=== PATIENT | female | born 1960 | race Asian ===

== ENCOUNTER 2019-03-28 08:56 | Emergency (ER) | payer OTHER ==
[~2019-03-28] VITALS: Ht 149.9 cm; Wt 51.7 kg
[2019-03-28 09:00] VITALS: Ht 149.9 cm; Wt 51.7 kg
[2019-03-28 11:46] VITALS: BP 126/79
== END 2019-03-28 11:46 | disposition home or self-care (01) ==
LOC: ED 08:56
DX: G40.409 Other generalized epilepsy and epileptic syndromes, not intractable, without status epilepticus (principal); G43.909 Migraine, unspecified, not intractable, without status migrainosus; F31.9 Bipolar disorder, unspecified; I10 Essential (primary) hypertension; Z88.8 Allergy status to other drugs, medicaments and biological substances
CPT/HCPCS: 82962

== ENCOUNTER 2019-03-29 06:58 | Emergency (ER) | payer OTHER ==
[~2019-03-29] VITALS: Ht 152.4 cm; Wt 49.9 kg
[2019-03-29 07:07] VITALS: Ht 152.4 cm; Wt 49.9 kg
[2019-03-29 08:29] LABS: CARBON DIOXIDE 22.8 mmol/L (21-32); CHLORIDE SERUM 110 mmol/L (98-107); GFR1 > 60 mL/min; GLUCOSE SERUM 97 mg/dL (74-106); POTASSIUM SERUM 4.2 mmol/L (3.5-5.1); SODIUM SERUM 144 mmol/L (136-145)
[2019-03-29 09:50] VITALS: BP 125/64
== END 2019-03-29 09:50 | disposition home or self-care (01) ==
LOC: ED 06:58
PROVIDERS: Emergency Medicine
DX: G40.89 Other seizures (principal); I10 Essential (primary) hypertension; F32.9 Major depressive disorder, single episode, unspecified; Z88.6 Allergy status to analgesic agent; Z88.8 Allergy status to other drugs, medicaments and biological substances
CPT/HCPCS: J1885; J2060

== ENCOUNTER 2019-03-31 09:23 | Inpatient (IN) | payer OTHER ==
[~2019-03-31] VITALS: Ht 152.4 cm; Wt 52.8 kg
[2019-03-31 09:28] VITALS: Ht 152.4 cm; Wt 52.8 kg
--- NOTE | 2019-03-31 09:38 | NUR ---
PT BIBA FROM [facility], FOUND ON FLOOR, POST ICTAL, THIRD TIME THIS WEEK, WAS HERE SEVERAL DAYS AGO FOR SAME, PURPLE COLORED BRUISING/HEMATOMA NOTED TO FOREHEAD. PT AWAKE, FOLLOWS SIMPLE COMMANDS, BUT NON VERBAL AT THIS TIME. RESP EVEN AND UNLABORED, ON RA@99%. LEFT HAND IV G#20, TECHNOLOGY STRATEGIST LINE-PATENT. PER REPORT, PATIENT TAKING MEDS PRESCRIBED, INCLUDING KEPPRA. SEIZURE PRECAUTIONS IN PLACE, WILL CONT TO MONITOR CLOSELY. PT PLACED ON MONITOR AT 111, ST. ABD SOFT, ROUND, NT TO PALPATION, NO OBVIOUS INJURIES NOTED, ORAL MUCOSA/TONGUE INTACT. PERRL. NO INCONTINCE NOTED. SAFETY PRECAUTIONS IN PLACE, WILL CONT TO MONITOR.
[2019-03-31 09:54] LABS: CALCIUM 9.2 mg/dL (8.5-10.1); CARBON DIOXIDE 22.6 mmol/L (21-32); CREATININE SERUM 1.1 mg/dL (0.6-1.0); POTASSIUM SERUM 3.9 mmol/L (3.5-5.1)
--- NOTE | 2019-03-31 09:54 | NUR ---
PT BACK FROM CT SCAN
[2019-03-31 09:59] LABS: BILIRUBIN TOTAL 0.22 mg/dL (0.20-1.00); TOTAL PROTEIN, SERUM 7.7 g/dL (6.4-8.2)
--- NOTE | 2019-03-31 10:22 | NUR ---
PT HAD A TONIC CLONIC TYPE SEIZURE ACTIVITY, LASTING APPROX [address] VILLEGAS INFORMED AND MEDICATED ORDERED.PT HAS SEIZURE PADS AND WAS PLACED ON SIDE WHEN SEIZURE WAS OCCURING, OXYGEN PLACED. PER DR VILLEGAS, PT WILLBE ADMITTED TO FLOOR FOR OBSERVATION.
--- NOTE | 2019-03-31 10:51 | NUR ---
REPORT GIVEN TO RN, UPDATED ON STATUS, LSBS AND VITALS. PT STABLE FOR TRANSFER, VSS. CLOTHING BELONGINGS WITH PT. PT CONTINUES TO BE NON VERBAL , BUT NODS HEAD YES AND NO AND FOLLOWS ALL COMMANDS.
[2019-03-31 10:52] LABS: BASOPHIL % 0.3 % (0-2); PLATELET COUNT 248 x10^3mcL (130-400); RED CELL DISTRIBUTION WIDTH 13.8 % (11.5-14.5)
[2019-03-31] MEDS ORDERED: MAC100 PO (11:19)
[2019-03-31] MEDS ORDERED: LATUDA40 M1 PO (11:19)
[2019-03-31] MEDS ORDERED: LEXAPRO10 MG PO (11:20)
[2019-03-31] MEDS ORDERED: ATIVAN1 MG PO (11:21)
[2019-03-31] MEDS ORDERED: AMBIEN10 MG PO (11:21)
[2019-03-31] MEDS ORDERED: KEPPRA500 MG PO (11:22)
[2019-03-31] MEDS ORDERED: PRO30 PO (11:22)
--- NOTE | 2019-03-31 11:44 | NUR ---
RECEIVED PT FROM ER. ADMISSION ASSESSMENT AND HISTORY IS DONE. PT IS SLEEPING THIS TIME, DROWSY. CAME NOW AND ANSWERED ALL ADMISSION QUESTIONS AND INFORMED ABOUT PT HALLUCINATIONS AND SUICIDAL THOUGHT, CLOSELY MONITERING PT AND INFORMED CHARGE NURSE. CHARGE NURSE IS CALLING . SZ PRECAUTIONS AND SAFTEY PRECAUTIONS ARE IN PLACE. WILL MONITOR. AT BEDSIDE.
--- NOTE | 2019-03-31 11:46 | NUR ---
PT TOOK IV OUT, BANDAGED AND PRESSURE APPLIED. NEW IV TO RT HAND #[id number].
[2019-03-31 12:39] VITALS: BP 156/77
--- NOTE | 2019-03-31 12:49 | NUR ---
DR FOFANA MADE AWARE THAT PER PATIENT'S , PATIENT HAS BEEN EXPERIENCED SUICIDAL THOUGHTS AND HALLUCINATIONS. RECEIVED ORDER FOR 1:1 SITTER AND PSYCH CONSULT. ATTENDING NURSE SILVIA MADE AWARE.
--- NOTE | 2019-03-31 13:30 | NUR ---
PT IS AWAKE AND EATING LUNCH. A/O X4. MILD FORGETFULNESS.
--- NOTE | 2019-03-31 13:49 | NUR ---
TELE NEURO INITIATED AT THIS TIME. ATTENDING NURSE SILVIA MADE AWARE.
--- NOTE | 2019-03-31 15:27 | NUR ---
DR FOFANA INFORMED ABOUT TELE-NEUROLOGY CONSULTATION AND RECOMMENDATIONS. NO NEW ORDERS RECEICED.
--- NOTE | 2019-03-31 15:30 | NUR ---
NEUROLOGIST SPOKE WITH PT THROUGH TELE NEURO. PT ANSWERED ALL HIS QUESTIONS. PT'S AT BEDSIDE AND ALSO SITTER AT BEDSIDE. PT IS STABLE.
[2019-03-31 16:36] VITALS: BP 143/71
--- NOTE | 2019-03-31 19:10 | NUR ---
PT RESTING IN BED COMFORTABLY. SITTER AT BEDSIDE FOR SAFTEY. SZ PRECAUTIONS ARE IN PLACE. STABLE. GAVE REPORT TO SAS DEVELOPER NURSE.
--- NOTE | 2019-03-31 19:15 | NUR ---
RECEIVED A CALL FROM [facility] AND THE CERAMIC DESIGNER SAID THAT THEY DO NOT DO CONTINOUS EEG TO A PT. SHE SAID IT MIGHT BE DONE OUT PT OR TERTIARY CARE. SO NOTIFIED DR. ANTONIO FOFANA AND HE SAID JUST FOLLOW UP BECAUSE IT MIGHT BE REAL SYMPTOMS BECAUSE DURING SEIZURES HER HEART RATE GOES UP AND BECOME ALTERED AND HAPPENED DAILY. DR FOFANA ALSO SAID THAT IT MIGHT ALSO THAT SHE IS FAKING. COULD NOT R/O SO ITS BETTER TO HAVE IT FOLLOWED UP TO HIGHER LEVEL OF CARE.
--- NOTE | 2019-03-31 19:32 | NUR ---
CALLED [facility] BUT TALKED TO TRANSFER CENTER AND THEY SAID THEY ARE IN CAPACITY UNLESS IT IS STROKE, STEMI OR TRAUMA. SO THEY CANNOT ACCEPT PT FOR NOW.
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
--- NOTE | 2019-03-31 19:51 | NUR ---
CALLED [facility] THE INSURANCE PROVIDER OF THIS PT AND WAS ABLE TO TALK TO JESSICA AND TOLD HER ABOUT THE PT AND DR FOFANA'S ORDER TO TRANSFER PT TO HIGHER LEVEL OF CARE TO HAVE CONTINOUS EEG TO MONITOR SEIZURES TO R/O OUT FAKE OR REAL SEIZURES BECAUSE PT IS ALSO SYMPTOMATIC EVERYTIME SEIZURE WILL HAPPENED LIKE INCREASE HEART RATE AND ALTERED. JESSICA TOLD ME THAT SHE WILL PRESENT THIS TO THEIR GROUP TOMORROW AND THEY WILL LET US KNOW. NOTIFIED NURSE OF THE PT WM LEE. AND EXPLAINED THAT [facility] WILL LET US KNOW WHICH HOSPITAL IS COVERED BY HER INSURANCE. AND NOTIFIED CHARGE NURSE.
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
[2019-03-31 21:18] VITALS: BP 146/65
--- NOTE | 2019-04-01 05:15 | NUR ---
PT RESTED IN INTERVALS DURING SHIFT, MEDICATED WITH AMBIEN FOR SLEEP. PT REPORTS THE AUDITORY HALLUCINATIONS STILL PRESENT ALTHOUGH MORE DISTANT SINCE SPENDING SOME QUALITY TIME WITH FAMILY BEFORE BED. ALL COMFORT AND SAFETY MEASURES PROVIDED FOR, CALL LIGHT WITHIN REACH, BED IN LOWST POSITION, WILL CONTINUE TO MONITOR.
[2019-04-01 06:19] VITALS: BP 113/63
[2019-04-01 06:34] LABS: BASOPHIL % 0.9 % (0-2); PLATELET COUNT 233 x10^3mcL (130-400); RED CELL DISTRIBUTION WIDTH 13.6 % (11.5-14.5)
[2019-04-01 07:04] LABS: T4(THYROXINE) 7.3 ug/dL (4.7-13.3)
--- NOTE | 2019-04-01 07:45 | NUR ---
RECEIVED PT IN BED. ASSESSED AND DOCUMENTED. DENIES PAIN THIS TIME. CALM THIS TIME. NO HALLUCINATIONS THIS TIME. EPISODES OF AUDITORY HALLUCINATIONS YESTERDAY AND LAST NIGHT, SHE HEAR VOICES FOR HURT HERSELF AND PER REPORT PT TOLD NURSE SHE WANT TO CUT HERSELF WITH PLASTIC KNIFE LAST NIGHT. NO EPISODES OF HALLUCINATIONS THIS TIME. SITTER AT BEDSIDE. SAFTEY PRECAUTIONS ARE IN PLACE. WILL MONITOR.
[2019-04-01 08:57] LABS: ERYTHROCYTE SED RATE 17 mm/hr (0-30)
[2019-04-01 09:26] VITALS: BP 118/69
[2019-04-01 13:10] VITALS: BP 112/69
--- NOTE | 2019-04-01 13:11 | NUR ---
PT SAID SHE IS HEARING VOICES FOR HURTING HERSELF AND ASKING FOR ATIVAN IV, ADMINISTERED ATIVAN 1MG IV ORDERED AT 1241 AND REASSESSED NOW, PT IS CALM NOW,NO MORE HEARING VOICES.
[2019-04-01 17:28] VITALS: BP 100/60
--- NOTE | 2019-04-01 18:02 | NUR ---
RECEIVED TELEPHONE ORDERS FROM DR FOFANA TO TRANSFER PATIENT TO [facility]. PER SUPERVISOR BELT AND LINK ASSEMBLY PATIENT IS ACCEPTED AND BED IS AVAILABLE AFTER 7PM. ATTENDING NURSE SILVIA MADE AWARE.
[2019-04-01 18:41] VITALS: BP 100/60
--- NOTE | 2019-04-01 18:45 | NUR ---
PT WILL BE TRANSFERED [place] [facility] [place] REPORT GIVEN TO NURSE KIM. TRANSFER PAPER SIGNED BY PT. PACKET IS READY.
--- NOTE | 2019-04-01 19:30 | NUR ---
PT REMAINS STABLE AND CALM, NO HALLUCINATIONS THIS TIME. GAVE REPORT TO WHITE WASHER NURSE.
--- NOTE | 2019-04-01 20:47 | NUR ---
JASS BECK HERE TO BODY SHOP SUPERVISOR PATIENT GOING TO [facility]. PT. NOTED SEIZURE LIKE EPISODE. EYES CLOSED. NO RESPIRATORY DISTRESS. MEDICATED ORDERED WITH ATIVAN. PT.CALM AT THIS TIME. TRANSFER PACKET GIVEN. FAMILY AT THE BEDSIDE.
[2019-04-02 05:08] LABS: RAPID PLASMA REAGIN Non Reactive (Non Reactive)
[2019-04-02 09:10] LABS: RHEUMATOID ARTHRITIS FACTOR <10.0 IU/mL (0.0-13.9)
== END 2019-04-01 21:05 | disposition short-term general hospital (02) | DRG 100 ==
LOC: ED 09:23 → DU 10:16
PROVIDERS: Emergency Medicine; ADMIT Internal Medicine
DX: G40.909 Epilepsy, unspecified, not intractable, without status epilepticus (principal); G93.41 Metabolic encephalopathy; F31.30 Bipolar disorder, current episode depressed, mild or moderate severity, unspecified; R45.851 Suicidal ideations; G50.0 Trigeminal neuralgia; F43.10 Post-traumatic stress disorder, unspecified; Z68.26 Body mass index [BMI] 26.0-26.9, adult
CPT/HCPCS: 82962; 86431; G0378; J2060; J7030; Q0092